=== PATIENT | male | born 1990 | race Caucasian/White ===

== ENCOUNTER 2024-11-26 09:26 | Outpatient (CLI) | payer OTHER, SELFPAY | END 2024-11-26 09:27 | disposition home or self-care (01) | PROVIDERS: Visit Provider Family Medicine | DX: Z13.220 Encounter for screening for lipoid disorders (principal); R35.0 Frequency of micturition; Z12.5 Encounter for screening for malignant neoplasm of prostate | CPT/HCPCS: 80053; 80061; 87086; G0103 ==